=== PATIENT | male | born 1990 | race Caucasian/White ===

== ENCOUNTER 2016-08-07 12:19 | Emergency (ER) | payer OTHER ==
[2016-08-07] MEDS ORDERED: SODIUM CHLORIDE 0.9% 1,000 ML IV ONE (13:24)
[2016-08-07] MEDS ORDERED: IOPAMIDOL-300 100 ML VIAL IVP ONE (14:35)
[2016-08-07] MEDS ORDERED: CLINDAMYCIN 150 MG CAPSULE PO STA (15:33)
[2016-08-07] MEDS ORDERED: CLINDAMYCIN 150 MG CAPSULE PO ONE (15:43)
== END 2016-08-07 15:53 | disposition home or self-care (01) ==
DX: L03.211 Cellulitis of face (principal); L02.01 Cutaneous abscess of face
CPT/HCPCS: 36415; 70487; 80053; 83690; 85025; 99283; 99284; A9270; Q9967